=== PATIENT | male | born 1955 | race Two or more races ===

== ENCOUNTER 2020-06-19 23:25 | Inpatient (IN) | payer MEDICAID, OTHER ==
[~2020-06-19] VITALS: Ht 175.3 cm; Wt 61.6 kg
[2020-06-20 01:03] LABS: INR 1.23 (0.9-1.15); Partial Thromboplastin Time 27.5 sec (23.0-31.2)
[2020-06-20] MEDS ORDERED: ASPirin 81 mg TAB PO ONE (01:45)
[2020-06-20] MEDS ORDERED: SODIUM CHLORIDE 0.9% 1,000 ML IV ONE (01:45)
[2020-06-20] MEDS ORDERED: MORPHINE SULF INJ 2 MG/ML SYRINGE 1ML ONE (02:29)
[2020-06-20] MEDS ORDERED: IOHEXOL 350 MG/ML 100ML IJ ONE (02:39)
[2020-06-20] MEDS ORDERED: MORPHINE SULFATE 4 MG/ML SYR/VIAL ONE (03:10)
[2020-06-20] MEDS ORDERED: MORPHINE SULFATE 4 MG/ML SYR/VIAL IV ONE (03:15)
[2020-06-20 03:39] LABS: Red Cell Distribution Width 12.7 % (11.8-14.3)
[2020-06-20 03:41] LABS: Hematocrit 36.4 % (41.0-53.0); Mean Corpuscular Hemoglobin 29.8 pg (28.0-32.0); Mean Corpuscular Hgb Conc. 32.9 g/dL (32.0-36.0); Mean Corpuscular Volume 90.5 fL (80.0-100.0); Platelet Count (auto) 206 10^3/uL (140-450); Red Blood Cells 4.02 10^6/uL (4.5-5.90)
[2020-06-20 04:02] LABS: White Blood Cell 34.8 10^3/uL (4.4-10.8)
[2020-06-20 04:04] LABS: Basophils % (manual) 0 (0.0-2.0); Blast Cells 0; Eosinophils % (manual) 0 (0-7); Myelocytes % 0; Promyelocytes % 0; Reactive Lymphocytes 0
[2020-06-20 04:31] LABS: Potassium 4.5 mmol/L (3.5-5.1)
[2020-06-20 04:32] LABS: Albumin 2.6 g/dL (3.4-5.0); BUN/Creatinine Ratio 8.1; Bilirubin, Total 0.5 mg/dL (0.2-1.0); Calcium 7.9 mg/dL (8.5-10.1); Magnesium 1.5 mg/dL (1.6-2.6); Total Protein 7.3 g/dL (6.4-8.2)
[2020-06-20 04:40] LABS: Band Neutrophils % (manual) 34; Lymphocytes % (manual) 2 (10.0-50.0); Metamyelocytes % 2; Monocytes % (manual) 2 (0-12)
[2020-06-20] MEDS ORDERED: AZITHROMYCIN 500MG/ 250ML 250 ML IV ONE (06:00)
[2020-06-20] MEDS ORDERED: ACETAMINOPHEN 325 MG TAB PO PRN (07:45)
[2020-06-20] MEDS ORDERED: MORPHINE SULF INJ 2 MG/ML SYRINGE 1ML IV PRN (07:45)
[2020-06-20] MEDS ORDERED: NITROGLYCERIN 0.4 MG SL TAB SL PRN (07:45)
[2020-06-20] MEDS ORDERED: ONDANSETRON HCL 4 MG/2 ML VIAL IV PRN (07:45)
[2020-06-20] MEDS ORDERED: DOCUSATE SOD 100 MG CAP PO PRN (07:45)
[2020-06-20] MEDS ORDERED: HYDROcodone-ACET 10/325MG TAB ONE (07:58)
[2020-06-20] MEDS ORDERED: HYDROcodone-ACET 10/325MG TAB PO ONE (08:00)
[2020-06-20] MEDS ORDERED: FAMOTIDINE 20 MG TAB PO SCH (10:00)
[2020-06-20] MEDS: ZINC SULFATE 220mg CAP or TAB PO SCH (10:08)
[2020-06-20] MEDS: ASPirin 81 mg TAB PO SCH (10:08)
[2020-06-20] MEDS: MORPHINE SULFATE 4 MG/ML SYR/VIAL IV PRN (10:09)
[2020-06-20] MEDS: MULTIPLE VITAMIN TAB PO SCH (10:09)
[2020-06-20] MEDS: ASCORBIC ACID 500 MG TAB PO SCH ×2 (10:09→23:56)
[2020-06-20 10:19] LABS: Hemoglobin 12.4 g/dL (13.5-17.5); Mean Corpuscular Hgb Conc. 33.5 g/dL (32.0-36.0); Mean Corpuscular Volume 89.7 fL (80.0-100.0); Platelet Count (auto) 232 10^3/uL (140-450); Red Blood Cells 4.12 10^6/uL (4.5-5.90); Red Cell Distribution Width 12.8 % (11.8-14.3); White Blood Cell 27.8 10^3/uL (4.4-10.8)
[2020-06-20 10:31] LABS: Albumin 2.8 g/dL (3.4-5.0); Calcium 8.1 mg/dL (8.5-10.1); Potassium 4.7 mmol/L (3.5-5.1)
[2020-06-20 10:34] LABS: Lactic Acid w/Reflex 5.2 mmol/L (0.4-2.0)
[2020-06-20 10:36] LABS: BUN/Creatinine Ratio 9.6; Bilirubin, Total 0.6 mg/dL (0.2-1.0); Total Protein 7.9 g/dL (6.4-8.2)
[2020-06-20 10:42] LABS: Basophils % (manual) 0 (0.0-2.0); Blast Cells 0; Eosinophils % (manual) 0 (0-7); Promyelocytes % 0; Reactive Lymphocytes 0
[2020-06-20 12:42] LABS: Band Neutrophils % (manual) 27; Lymphocytes % (manual) 2 (10.0-50.0); Metamyelocytes % 2; Monocytes % (manual) 2 (0-12); Myelocytes % 1
[2020-06-20 16:04] LABS: Urine Bacteria FEW /hpf (None Seen); Urine Blood 3+ /uL (Negative); Urine Specific Gravity 1.046 (1.001-1.035); Urine Sperm PRESENT /hpf (None Seen); Urine WBC 30 /hpf (0 - 3)
[2020-06-20] MEDS ORDERED: SODIUM CHLORIDE 0.9% 500 ML IV ONE (17:45)
[2020-06-20] MEDS: HYDROcodone-ACET 5/325MG TAB PO PRN (17:55)
[2020-06-20 18:32] LABS: Protein, Urine 184.1 mg/dL (0.0-11.9)
[2020-06-20] MEDS: SODIUM BICARBONATE 50ML VIAL 150 ML in D5W 5% 1,000 ML IV SCH (20:15)
[2020-06-20 22:10] LABS: Calcium 7.9 mg/dL (8.5-10.1); Potassium 5.3 mmol/L (3.5-5.1)
[2020-06-20 22:12] LABS: BUN/Creatinine Ratio 15.5
[2020-06-20] MEDS: PIPERACILLIN-TAZOB 2.25GM 50 ML IV SCH (23:55)
[2020-06-20] MEDS: PANTOPRAZOLE 40 MG TAB PO SCH (23:56)
[2020-06-21] VITALS: BP 108/60
[2020-06-21] MEDS: PIPERACILLIN-TAZOB 2.25GM 50 ML IV SCH ×3 (05:54→22:22)
[2020-06-21] MEDS: SODIUM BICARBONATE 50ML VIAL 150 ML in D5W 5% 1,000 ML IV SCH (05:54)
[2020-06-21 08:00] VITALS: BP 109/65
[2020-06-21] MEDS: PANTOPRAZOLE 40 MG TAB PO SCH ×2 (09:30→22:22)
[2020-06-21] MEDS: MULTIPLE VITAMIN TAB PO SCH (09:30)
[2020-06-21] MEDS: ZINC SULFATE 220mg CAP or TAB PO SCH (09:30)
[2020-06-21] MEDS: ASCORBIC ACID 500 MG TAB PO SCH ×2 (09:30→22:23)
[2020-06-21] MEDS: ASPirin 81 mg TAB PO SCH (09:30)
[2020-06-21] MEDS: MORPHINE SULFATE 4 MG/ML SYR/VIAL IV PRN (09:31)
[2020-06-21] MEDS ORDERED: AZITHROMYCIN 500MG/ 250ML 250 ML IV SCH (10:00)
[2020-06-21 13:14] LABS: Basophils # (auto) 0 10 ^3/uL (0-0.2); Basophils % (auto) 0.1 % (0.0-2.0); Eosinophils # (auto) 0 10 ^3/uL (0-0.8); Eosinophils % (auto) 0.1 % (0.0-7.0); Hematocrit 34.4 % (41.0-53.0); Hemoglobin 11.7 g/dL (13.5-17.5); Lymphocytes # (auto) 0.4 10 ^3/uL (0.4-5.4); Lymphocytes % (auto) 2.8 % (10.0-50.0); Mean Corpuscular Hemoglobin 30.2 pg (28.0-32.0); Mean Corpuscular Hgb Conc. 33.9 g/dL (32.0-36.0); Mean Corpuscular Volume 88.9 fL (80.0-100.0); Monocytes # (auto) 0.9 10 ^3/uL (0-1.3); Monocytes % (auto) 6.6 % (0.0-12.0); Neutrophils # (auto) 11.6 10 ^3/uL (1.6-8.6); Neutrophils % (auto) 90.4 % (37.0-80.0); Platelet Count (auto) 168 10^3/uL (140-450); Red Blood Cells 3.87 10^6/uL (4.5-5.90); Red Cell Distribution Width 12.9 % (11.8-14.3); White Blood Cell 12.8 10^3/uL (4.4-10.8)
[2020-06-21 13:26] LABS: Albumin 2.1 g/dL (3.4-5.0); BUN/Creatinine Ratio 20.9; Calcium 8.4 mg/dL (8.5-10.1); Potassium 3.7 mmol/L (3.5-5.1)
[2020-06-21 13:28] LABS: Bilirubin, Total 0.7 mg/dL (0.2-1.0); Total Protein 6.7 g/dL (6.4-8.2)
[2020-06-21] MEDS ORDERED: SODIUM CHLORIDE 0.9% 1,000 ML IV ONE (14:15)
[2020-06-21 16:00] VITALS: BP 110/65
[2020-06-21] MEDS: SUCRALFATE 1 GM/10 ML ORAL SUSP PO SCH ×2 (17:30→22:22)
[2020-06-22] VITALS: BP 101/61
[2020-06-22] MEDS: MORPHINE SULFATE 4 MG/ML SYR/VIAL IV PRN ×4 (00:28→22:31)
[2020-06-22] MEDS: PIPERACILLIN-TAZOB 2.25GM 50 ML IV SCH ×3 (06:30→22:31)
[2020-06-22] MEDS: SUCRALFATE 1 GM/10 ML ORAL SUSP PO SCH ×4 (06:45→22:31)
[2020-06-22 07:59] LABS: Basophils # (auto) 0 10 ^3/uL (0-0.2); Basophils % (auto) 0.4 % (0.0-2.0); Eosinophils # (auto) 0 10 ^3/uL (0-0.8); Eosinophils % (auto) 0.2 % (0.0-7.0); Hematocrit 35.4 % (41.0-53.0); Lymphocytes # (auto) 0.5 10 ^3/uL (0.4-5.4); Mean Corpuscular Hgb Conc. 33.8 g/dL (32.0-36.0); Mean Corpuscular Volume 88.6 fL (80.0-100.0); Monocytes # (auto) 1.2 10 ^3/uL (0-1.3); Monocytes % (auto) 9.9 % (0.0-12.0); Neutrophils # (auto) 10.2 10 ^3/uL (1.6-8.6); Neutrophils % (auto) 85.5 % (37.0-80.0); Platelet Count (auto) 154 10^3/uL (140-450); Red Cell Distribution Width 12.9 % (11.8-14.3)
[2020-06-22 08:00] VITALS: BP 118/82
[2020-06-22 08:20] LABS: Calcium 8.6 mg/dL (8.5-10.1); Potassium 3.6 mmol/L (3.5-5.1)
[2020-06-22 08:24] LABS: BUN/Creatinine Ratio 22.1; Bilirubin, Total 0.8 mg/dL (0.2-1.0); Total Protein 6.9 g/dL (6.4-8.2)
[2020-06-22] MEDS: FAMOTIDINE 20 MG TAB PO SCH (10:00)
[2020-06-22] MEDS: ASPirin 81 mg TAB PO SCH (10:00)
[2020-06-22] MEDS: MULTIPLE VITAMIN TAB PO SCH (10:00)
[2020-06-22] MEDS: ASCORBIC ACID 500 MG TAB PO SCH ×2 (10:00→22:31)
[2020-06-22] MEDS: PANTOPRAZOLE 40 MG TAB PO SCH ×2 (10:00→22:31)
[2020-06-22] MEDS: ZINC SULFATE 220mg CAP or TAB PO SCH (10:00)
[2020-06-22 16:00] VITALS: BP 141/77
[2020-06-23] VITALS: BP 131/73
[2020-06-23] MEDS: MORPHINE SULFATE 4 MG/ML SYR/VIAL IV PRN ×3 (05:05→21:21)
[2020-06-23] MEDS: PIPERACILLIN-TAZOB 2.25GM 50 ML IV SCH ×3 (06:20→21:21)
[2020-06-23] MEDS: SUCRALFATE 1 GM/10 ML ORAL SUSP PO SCH ×4 (06:40→21:20)
[2020-06-23 06:50] LABS: Hematocrit 36.1 % (41.0-53.0); Hemoglobin 12.6 g/dL (13.5-17.5); Mean Corpuscular Hemoglobin 30.9 pg (28.0-32.0); Mean Corpuscular Volume 88.4 fL (80.0-100.0); Platelet Count (auto) 151 10^3/uL (140-450); Red Blood Cells 4.08 10^6/uL (4.5-5.90); Red Cell Distribution Width 12.8 % (11.8-14.3); White Blood Cell 8.1 10^3/uL (4.4-10.8)
[2020-06-23 06:59] LABS: Band Neutrophils % (manual) 0; Basophils % (manual) 0 (0.0-2.0); Blast Cells 0; Metamyelocytes % 0; Myelocytes % 0; Promyelocytes % 0; Reactive Lymphocytes 0
[2020-06-23 07:14] LABS: Potassium 3.6 mmol/L (3.5-5.1)
[2020-06-23 07:26] LABS: Albumin 2.2 g/dL (3.4-5.0); BUN/Creatinine Ratio 21.1; Calcium 8.5 mg/dL (8.5-10.1); Total Protein 7.2 g/dL (6.4-8.2)
[2020-06-23] MEDS: ASPirin 81 mg TAB PO SCH (07:48)
[2020-06-23 07:53] LABS: Eosinophils % (manual) 1 (0-7); Lymphocytes % (manual) 5 (10.0-50.0); Monocytes % (manual) 23 (0-12)
[2020-06-23 08:00] VITALS: BP 121/75
[2020-06-23] MEDS: PANTOPRAZOLE 40 MG TAB PO SCH ×2 (10:24→21:20)
[2020-06-23] MEDS: FAMOTIDINE 20 MG TAB PO SCH (10:24)
[2020-06-23] MEDS: MULTIPLE VITAMIN TAB PO SCH (10:30)
[2020-06-23] MEDS: ZINC SULFATE 220mg CAP or TAB PO SCH (10:31)
[2020-06-23] MEDS: ASCORBIC ACID 500 MG TAB PO SCH ×2 (10:31→21:21)
[2020-06-23 16:00] VITALS: BP 115/72
[2020-06-24] VITALS: BP 148/85
[2020-06-24] MEDS: SUCRALFATE 1 GM/10 ML ORAL SUSP PO SCH ×4 (06:00→21:37)
[2020-06-24] MEDS: PIPERACILLIN-TAZOB 2.25GM 50 ML IV SCH ×3 (06:00→21:37)
[2020-06-24] MEDS: MORPHINE SULFATE 4 MG/ML SYR/VIAL IV PRN ×3 (06:07→18:14)
[2020-06-24 07:09] LABS: Hematocrit 38.7 % (41.0-53.0); Mean Corpuscular Hgb Conc. 33.4 g/dL (32.0-36.0); Mean Corpuscular Volume 89.9 fL (80.0-100.0); Platelet Count (auto) 166 10^3/uL (140-450); Red Blood Cells 4.31 10^6/uL (4.5-5.90); Red Cell Distribution Width 13.2 % (11.8-14.3); White Blood Cell 12.2 10^3/uL (4.4-10.8)
[2020-06-24 07:27] LABS: Basophils % (manual) 0 (0.0-2.0); Blast Cells 0; Myelocytes % 0; Promyelocytes % 0; Reactive Lymphocytes 0
[2020-06-24 07:41] LABS: Potassium 3.7 mmol/L (3.5-5.1)
[2020-06-24 07:56] LABS: Albumin 2.1 g/dL (3.4-5.0); BUN/Creatinine Ratio 20.4; Bilirubin, Total 1.2 mg/dL (0.2-1.0); Total Protein 6.2 g/dL (6.4-8.2)
[2020-06-24 08:00] VITALS: BP 134/82
[2020-06-24 09:11] LABS: Band Neutrophils % (manual) 1; Eosinophils % (manual) 2 (0-7); Lymphocytes % (manual) 8 (10.0-50.0); Metamyelocytes % 1; Monocytes % (manual) 16 (0-12)
[2020-06-24] MEDS: ASPirin 81 mg TAB PO SCH (09:42)
[2020-06-24] MEDS: ZINC SULFATE 220mg CAP or TAB PO SCH (09:42)
[2020-06-24] MEDS: MULTIPLE VITAMIN TAB PO SCH (09:43)
[2020-06-24] MEDS: FAMOTIDINE 20 MG TAB PO SCH (09:43)
[2020-06-24] MEDS: PANTOPRAZOLE 40 MG TAB PO SCH ×2 (09:45→21:37)
[2020-06-24] MEDS: ASCORBIC ACID 500 MG TAB PO SCH ×2 (09:50→21:38)
[2020-06-24] MEDS ORDERED: ASCO500T11 PO (11:37)
[2020-06-24] MEDS ORDERED: SUCR1SUS10 PO (11:37)
[2020-06-24] MEDS ORDERED: PANT40T PO (11:37)
[2020-06-24] MEDS ORDERED: AMOX500T86 PO (13:55)
[2020-06-24 16:00] VITALS: BP 122/64
[2020-06-24] MEDS: HYDROcodone-ACET 5/325MG TAB PO PRN (21:39)
[2020-06-25] VITALS: BP 98/44
[2020-06-25] MEDS: PIPERACILLIN-TAZOB 2.25GM 50 ML IV SCH ×3 (05:44→21:51)
[2020-06-25] MEDS: SUCRALFATE 1 GM/10 ML ORAL SUSP PO SCH ×4 (05:44→21:52)
[2020-06-25 06:38] LABS: Hematocrit 39.9 % (41.0-53.0); Hemoglobin 13.4 g/dL (13.5-17.5); Mean Corpuscular Hgb Conc. 33.6 g/dL (32.0-36.0); Mean Corpuscular Volume 89.2 fL (80.0-100.0); Platelet Count (auto) 213 10^3/uL (140-450); Red Blood Cells 4.47 10^6/uL (4.5-5.90); White Blood Cell 8.5 10^3/uL (4.4-10.8)
[2020-06-25 06:50] LABS: Basophils % (manual) 0 (0.0-2.0); Blast Cells 0; Myelocytes % 0; Promyelocytes % 0; Reactive Lymphocytes 0
[2020-06-25 07:07] LABS: Potassium 3.5 mmol/L (3.5-5.1)
[2020-06-25 07:20] LABS: BUN/Creatinine Ratio 18.9; Bilirubin, Total 1.1 mg/dL (0.2-1.0); Calcium 8.3 mg/dL (8.5-10.1); Total Protein 7.3 g/dL (6.4-8.2)
[2020-06-25 08:00] VITALS: BP 128/71
[2020-06-25 08:37] LABS: Band Neutrophils % (manual) 3; Eosinophils % (manual) 1 (0-7); Lymphocytes % (manual) 7 (10.0-50.0); Metamyelocytes % 1; Monocytes % (manual) 21 (0-12)
[2020-06-25] MEDS: ASCORBIC ACID 500 MG TAB PO SCH ×2 (10:12→21:52)
[2020-06-25] MEDS: ASPirin 81 mg TAB PO SCH (10:12)
[2020-06-25] MEDS: PANTOPRAZOLE 40 MG TAB PO SCH ×2 (10:12→21:52)
[2020-06-25] MEDS: ZINC SULFATE 220mg CAP or TAB PO SCH (10:12)
[2020-06-25] MEDS: MULTIPLE VITAMIN TAB PO SCH (10:12)
[2020-06-25] MEDS: MORPHINE SULFATE 4 MG/ML SYR/VIAL IV PRN ×4 (10:13→23:49)
[2020-06-25] MEDS: FAMOTIDINE 20 MG TAB PO SCH (15:38)
[2020-06-25 16:00] VITALS: BP 121/48
[2020-06-26] VITALS: BP 126/67
[2020-06-26] MEDS: SUCRALFATE 1 GM/10 ML ORAL SUSP PO SCH ×4 (06:40→22:08)
[2020-06-26] MEDS: PIPERACILLIN-TAZOB 2.25GM 50 ML IV SCH ×3 (06:40→22:08)
[2020-06-26 07:13] LABS: Basophils # (auto) 0.1 10 ^3/uL (0-0.2); Basophils % (auto) 0.5 % (0.0-2.0); Eosinophils # (auto) 0 10 ^3/uL (0-0.8); Eosinophils % (auto) 0.2 % (0.0-7.0); Hematocrit 33.7 % (41.0-53.0); Hemoglobin 11.7 g/dL (13.5-17.5); Lymphocytes # (auto) 0.6 10 ^3/uL (0.4-5.4); Lymphocytes % (auto) 5.6 % (10.0-50.0); Mean Corpuscular Hemoglobin 30.5 pg (28.0-32.0); Mean Corpuscular Hgb Conc. 34.6 g/dL (32.0-36.0); Mean Corpuscular Volume 88.1 fL (80.0-100.0); Monocytes % (auto) 9.5 % (0.0-12.0); Neutrophils # (auto) 8.5 10 ^3/uL (1.6-8.6); Neutrophils % (auto) 84.2 % (37.0-80.0); Platelet Count (auto) 275 10^3/uL (140-450); Red Blood Cells 3.82 10^6/uL (4.5-5.90); Red Cell Distribution Width 13.1 % (11.8-14.3); White Blood Cell 10.1 10^3/uL (4.4-10.8)
[2020-06-26 07:21] LABS: Potassium 3.3 mmol/L (3.5-5.1)
[2020-06-26 07:33] LABS: Albumin 1.9 g/dL (3.4-5.0); BUN/Creatinine Ratio 18.5; Bilirubin, Total 0.8 mg/dL (0.2-1.0); Calcium 8.2 mg/dL (8.5-10.1)
[2020-06-26] MEDS: MORPHINE SULFATE 4 MG/ML SYR/VIAL IV PRN ×3 (08:08→20:39)
[2020-06-26 08:28] VITALS: BP 139/74
[2020-06-26] MEDS: FAMOTIDINE 20 MG TAB PO SCH (10:00)
[2020-06-26] MEDS: MULTIPLE VITAMIN TAB PO SCH (10:40)
[2020-06-26] MEDS: ASPirin 81 mg TAB PO SCH (10:40)
[2020-06-26] MEDS: PANTOPRAZOLE 40 MG TAB PO SCH ×2 (10:40→22:09)
[2020-06-26] MEDS: ZINC SULFATE 220mg CAP or TAB PO SCH (10:41)
[2020-06-26] MEDS: ASCORBIC ACID 500 MG TAB PO SCH ×2 (10:41→22:09)
[2020-06-26 16:01] VITALS: BP 126/67
[2020-06-26 16:33] VITALS: BP 135/74
[2020-06-27] VITALS: BP 123/70
[2020-06-27] MEDS: MORPHINE SULFATE 4 MG/ML SYR/VIAL IV PRN ×3 (00:50→11:17)
[2020-06-27] MEDS: SUCRALFATE 1 GM/10 ML ORAL SUSP PO SCH (06:44)
[2020-06-27] MEDS: PIPERACILLIN-TAZOB 2.25GM 50 ML IV SCH (06:44)
[2020-06-27 08:00] VITALS: BP 111/58
[2020-06-27 08:30] LABS: Basophils # (auto) 0 10 ^3/uL (0-0.2); Basophils % (auto) 0.3 % (0.0-2.0); Eosinophils # (auto) 0 10 ^3/uL (0-0.8); Eosinophils % (auto) 0.3 % (0.0-7.0); Hematocrit 34.4 % (41.0-53.0); Hemoglobin 11.7 g/dL (13.5-17.5); Lymphocytes # (auto) 0.7 10 ^3/uL (0.4-5.4); Lymphocytes % (auto) 6.5 % (10.0-50.0); Mean Corpuscular Hemoglobin 30.4 pg (28.0-32.0); Mean Corpuscular Hgb Conc. 34.2 g/dL (32.0-36.0); Monocytes % (auto) 9.4 % (0.0-12.0); Neutrophils # (auto) 8.8 10 ^3/uL (1.6-8.6); Neutrophils % (auto) 83.5 % (37.0-80.0); Platelet Count (auto) 337 10^3/uL (140-450); Red Blood Cells 3.86 10^6/uL (4.5-5.90); Red Cell Distribution Width 13.1 % (11.8-14.3); White Blood Cell 10.5 10^3/uL (4.4-10.8)
[2020-06-27 08:49] LABS: Potassium 3.6 mmol/L (3.5-5.1)
[2020-06-27 09:04] LABS: Albumin 1.9 g/dL (3.4-5.0); BUN/Creatinine Ratio 17.1; Bilirubin, Total 0.9 mg/dL (0.2-1.0); Calcium 8.2 mg/dL (8.5-10.1); Total Protein 7.2 g/dL (6.4-8.2)
[2020-06-27] MEDS: PANTOPRAZOLE 40 MG TAB PO SCH (09:32)
[2020-06-27] MEDS: ZINC SULFATE 220mg CAP or TAB PO SCH (09:32)
[2020-06-27] MEDS: ASPirin 81 mg TAB PO SCH (09:32)
[2020-06-27] MEDS: ASCORBIC ACID 500 MG TAB PO SCH (09:33)
[2020-06-27] MEDS: FAMOTIDINE 20 MG TAB PO SCH (09:33)
[2020-06-27] MEDS: MULTIPLE VITAMIN TAB PO SCH (09:33)
[2020-06-27 10:57] VITALS: BP 111/58
== END 2020-06-27 11:40 | DRG 720 ==
LOC: ER 23:25 → TELE 23:26 → TELE-EAST 06-20 22:39
PROVIDERS: ADMIT Nurse Practitioner Family; ATTEND Internal Medicine Pulmonary Disease
PROC: 06HY33Z Insertion of Infusion Device into Lower Vein, Percutaneous Approach (ICD-10-PCS; principal; 2020-06-19)
DX: A41.89 Other specified sepsis (principal); U07.1 COVID-19; J12.82 Pneumonia due to coronavirus disease 2019; N17.0 Acute kidney failure with tubular necrosis; K20.90 Esophagitis, unspecified without bleeding; D64.9 Anemia, unspecified; F17.210 Nicotine dependence, cigarettes, uncomplicated; I10 Essential (primary) hypertension; I21.4 Non-ST elevation (NSTEMI) myocardial infarction; I25.10 Atherosclerotic heart disease of native coronary artery without angina pectoris; J44.0 Chronic obstructive pulmonary disease with (acute) lower respiratory infection; R65.20 Severe sepsis without septic shock; Z91.19 Patient's noncompliance with other medical treatment and regimen; F10.20 Alcohol dependence, uncomplicated; J98.11 Atelectasis; I95.9 Hypotension, unspecified
CPT/HCPCS: 36415; 36556; 36600; 71045; 71275; 74176; 76775; 80048; 80053; 80061; 80320; 81001; 82010; 82570; 82728; 82805; 83036; 83605; 83735; 83880; 84156; 84300; 84484; 85007; 85025; 85027; 85379; 85610; 85730; 86141; 86703; 87040; 87426; 93005; 93306; 96365; 96375; 96376; 97163; G0378; J2405; J2543